=== PATIENT | male | born 1935 | race Caucasian/White ===

== ENCOUNTER 2017-09-06 16:21 | Emergency (ER) | payer MEDICARE, BC ==
[2017-09-06] MEDS ORDERED: Sodium Chloride 0.9% 1,000 ML IV ONE (16:44)
[2017-09-06] MEDS ORDERED: Ondansetron 4 MG/2 ML SDV IVPUSH ONE (16:45)
--- NOTE | 2017-09-06 16:50 | EDM.PDOC ---
ED HPI GENERAL MEDICAL PROBLEM - General Stated Complaint: N/V/D Time Seen by Provider: 09/06/17 16:36 Source of Information: Reports: Patient History Limitations: Reports: No Limitations - History of Present Illness INITIAL COMMENTS - FREE TEXT/NARRATIVE: Patient presents via ambulance with vomiting and diarrhea. He had gone to see his PCP in clinic this morning and was given Rx for Augmentin to treat bronchitis. He took the first dose at noon today. Around 1.5 hours later he started to feel very sick to his stomach and shortly began vomiting repeatedly along with one episode of diarrhea. He now feels weak but hasn't vomited for almost two hours although still feels mildly nauseated. Denies any airway swelling or dyspnea. Abdominal Pain Score (Numeric/FACES): 4 - Related Data Allergies Allergy/AdvReac Type Severity Reaction Status Date / Time bacitracin Allergy Cannot Verified 09/06/17 17:26 [From Neosporin Remember ([id number])] doxazosin Allergy Cannot Verified 09/06/17 17:26 Remember doxycycline Allergy Cannot Verified 09/06/17 17:26 Remember gluten Allergy Cannot Verified 09/06/17 17:26 Remember Iodinated Contrast- Oral and Allergy Airway Verified 09/06/17 17:26 IV Dye Tightness lactose Allergy Cannot Verified 09/06/17 17:26 Remember neomycin Allergy Cannot Verified 09/06/17 17:26 [From Neosporin Remember ([id number])] polymyxin B Allergy Cannot Verified 09/06/17 17:26 [From Neosporin Remember ([id number])] verapamil Allergy Rash Verified 09/06/17 17:26 Home Meds: Home Meds Flunisolide [Nasalide Nasal [place]] 2 sprays INH BID 12/06/14 [History] Acetaminophen [Acetaminophen ER] 650 mg PO DAILY 09/06/17 [History] Ascorbic Acid [Vitamin C] 1,000 mg PO DAILY 09/06/17 [History] Lutein 20 mg PO DAILY 09/06/17 [History] amLODIPine Besylate [Amlodipine Besylate] 5 mg PO DAILY 09/06/17 [History] Past Medical History - Past Health History Medical/Surgical History: Denies Medical/Surgical History ED ROS GENERAL - Review of Systems Review Of Systems: See Below Constitutional: Reports: Weakness, Diaphoresis (with vomiting). Denies: Fever, Chills HEENT: Denies: Ear Pain, Throat Swelling, Vision Change Respiratory: Reports: Cough (for over a week). Denies: Shortness of Breath, Wheezing Cardiovascular: Denies: Chest Pain, Syncope GI/Abdominal: Reports: Abdominal Pain (feels bloated), Diarrhea, Vomiting : Reports: No Symptoms Musculoskeletal: Reports: No Symptoms Skin: Reports: No Symptoms Neurological: Denies: Confusion, Dizziness, Headache, Seizure, Syncope, Trouble Speaking, Change in Speech, Gait Disturbance Psychiatric: Denies: Agitation, Anxiety, Confusion ED EXAM, GI/ABD - Physical Exam Exam: See Below Exam Limited By: No Limitations General Appearance: Alert, WD/WN, No Apparent Distress Eyes: Bilateral: Normal Appearance, EOMI Ears: Normal External Exam, Normal Canal, Hearing Grossly Normal, Normal TMs Nose: Normal Inspection, No Blood Throat/Mouth: Normal Inspection, Normal Lips, Normal Oropharynx, Normal Voice, No Airway Compromise Head: Atraumatic, Normocephalic Neck: Normal Inspection, Supple, Full Range of Motion Respiratory/Chest: No Respiratory Distress, Lungs Clear, Normal Breath Sounds Cardiovascular: Regular Rate, Rhythm, No Rub GI/Abdominal Exam: Normal Bowel Sounds, Soft, Non-Tender, No Organomegaly, Distended (mild). No: Guarding, Rigid, Rebound Back Exam: Normal Inspection, Full Range of Motion. No: CVA Tenderness (L), CVA Tenderness (R) Extremities: Normal Inspection, Normal Range of Motion Neurological: Alert, Oriented, Normal Cognition, No Motor/Sensory Deficits Psychiatric: Normal Affect, Normal Mood Skin Exam: Warm, Dry, Intact, Normal Color, No Rash Course - Vital Signs Last Recorded V/S: Last Vital Signs Temp 98.0 F 09/06/17 16:30 Pulse 91 09/06/17 17:16 Resp 18 09/06/17 17:16 BP 134/49 L 09/06/17 17:16 Pulse Ox 91 L 09/06/17 17:16 - Orders/Labs/Meds Labs: Laboratory Tests 09/06/17 09/06/17 Range/Units 16:45 16:45 WBC 20.5 H D (5.0-10.0) 10^3/uL RBC 4.71 (4.50-6.00) 10^6/uL Hgb 15.4 (13.0-17.0) g/dL Hct 46.1 (40.0-52.0) % MCV 97.8 H (82.0-92.0) fL MCH 32.6 H (27.0-31.0) pg MCHC 33.3 (32.0-36.0) g/dL RDW 11.8 (11.5-14.5) % Plt Count 411 H D (150-300) 10^3/uL MPV 7.6 (7.4-10.4) fL Neut % (Auto) 89.0 H (50.0-70.0) % Lymph % (Auto) 3.3 L (20.0-40.0) % [place] % (Auto) 7.0 (2.0-8.0) % Eos % (Auto) 0.6 L (1.0-3.0) % Baso % (Auto) 0.1 (0.0-1.0) % Neut # (Auto) 18.3 H (2.5-7.0) 10^3/uL Lymph # (Auto) 0.7 L (1.0-4.0) 10^3/uL [place] # (Auto) 1.4 H (0.1-0.8) 10^3/uL Eos # (Auto) 0.1 (0.1-0.3) 10^3/uL Baso # (Auto) 0.0 (0.0-0.1) 10^3/uL Sodium 140 (136-145) mmol/L Potassium 4.3 (3.3-5.3) mmol/L Chloride 104 (98-115) mmol/L Carbon Dioxide 24.9 (21.0-32.0) mmol/L BUN 22 (6-25) mg/dL Creatinine 0.85 (0.51-1.17) mg/dL Est Cr Clr Drug Dosing 60.48 mL/min Estimated GFR (MDRD) > 60 mL/min Glucose 115 H (70-110) mg/dL Calcium 9.2 (8.7-10.3) mg/dL Total Bilirubin 0.8 (0.2-1.0) mg/dL AST 17 (15-37) U/L ALT 18 (12-78) U/L Alkaline Phosphatase 93 (46-116) IU/L Total Protein 8.4 H (6.4-8.2) g/dL Albumin 3.29 (3.00-4.80) g/dL Meds: Medications Discontinued Medications Generic Name Dose Route Start Last Admin Trade Name Paulie PRN Reason Stop Dose Admin Sodium Chloride 1,000 mls @ 999 mls/hr 09/06/17 16:44 09/06/17 16:58 Normal Saline IV 09/06/17 17:44 999 mls/hr .BOLUS ONE Administration Ondansetron HCl 4 mg 09/06/17 16:45 09/06/17 17:02 Zofran IVPUSH 09/06/17 16:46 4 mg ONETIME ONE Administration - Re-Assessments/Exams Free Text/Narrative Re-Assessment/Exam: 09/06/17 18:33 After Zofran and fluids IV, patient is feeling much better. Labs okay except WBC 20. Patient is afebrile without tachycardia or tachypnea and appears well. Discussed with patient that I feel the elevated WBC is due to the heavy vomiting he had today but that I want him to follow up with his PCP in 1-2 days to recheck it. Patient is in agreement and is discharged to home in stable condition. Departure - Departure Time of Disposition: 18:31 Disposition: Home, Self-Care 01 Clinical Impression: N&V (nausea and vomiting) Qualifiers: Vomiting type: unspecified Vomiting Intractability: unspecified Qualified Code( s): R11.2 - Nausea with vomiting, unspecified - Discharge Information Referrals: Antonia Khalil MD [Primary Care Provider] - Additional Instructions: 1. Drink 8 cups of water daily. 2. Use the Zofran as directed for nausea and vomiting. 3. Follow up with Dr. Hampton in 1-2 days for recheck of white blood count. 4. Return to ER if needed.
[2017-09-06 17:16] VITALS: BP 134/49
[2017-09-06 17:35] LABS: CHLORIDE,CL 104 mmol/L (98-115); SODIUM,NA 140 mmol/L (136-145)
[2017-09-06] MEDS: Ondansetron 4 MG Tab.DIS PO ONE ×3 (18:49→20:43)
== END 2017-09-06 19:00 | disposition home or self-care (01) ==
LOC: KA.ED 16:21
DX: R11.2 Nausea with vomiting, unspecified (principal); R19.7 Diarrhea, unspecified; Z79.899 Other long term (current) drug therapy; Z91.011 Allergy to milk products; Z88.8 Allergy status to other drugs, medicaments and biological substances; Z88.1 Allergy status to other antibiotic agents; Z91.041 Radiographic dye allergy status
CPT/HCPCS: 36415; 80053; 85025; 96361; 96374; 99284; A9270-GY; J2405; J7030

== ENCOUNTER 2021-07-05 13:18 | Emergency (ER) | payer MEDICARE, BC ==
[2021-07-05 13:32] VITALS: BP 144/90; PULSE 86
[2021-07-05] MEDS ORDERED: Lidocaine 1% 5 ML VIAL ONE (13:50)
[2021-07-05] MEDS ORDERED: Lidocaine 1% 5 ML VIAL INJECT ONE (13:53)
[2021-07-05] MEDS ORDERED: Diphtheria,Pertussis(Acell),Tetanus Vaccine 0.5 ML Syringe IM ONE (13:56)
== END 2021-07-05 14:10 | disposition home or self-care (01) ==
LOC: KA.ED 13:18
DX: S61.012A Laceration without foreign body of left thumb without damage to nail, initial encounter (principal); I10 Essential (primary) hypertension; Z88.1 Allergy status to other antibiotic agents; Z91.041 Radiographic dye allergy status; Z91.018 Allergy to other foods; Z88.8 Allergy status to other drugs, medicaments and biological substances; Z23 Encounter for immunization; W26.0XXA Contact with knife, initial encounter
CPT/HCPCS: 12002; 90471; 90715; 99282-25; 99283

== ENCOUNTER 2023-01-03 14:35 | Emergency (ER) | payer MEDICARE, BC ==
[2023-01-03 14:52] VITALS: BP 146/88; PULSE 103
[2023-01-03 14:58] LABS: BASOPHILS ABSOLUTE AUTO 0.03 10^3/uL (0.00-0.10); BASOPHILS PERCENT AUTO 0.5 % (0.0-1.0); EOSINOPHILS ABSOLUTE AUTO 0.05 10^3/uL (0.10-0.30); EOSINOPHILS PERCENT AUTO 0.8 % (1.0-3.0); HEMOGLOBIN 14.9 g/dL (13.0-17.0); IMMATURE GRAN ABSOLUTE AUTO 0.02 10^3/uL (0.00-0.50); IMMATURE GRAN PERCENT AUTO 0.3 % (0.0-5.0); MEAN CORPUSCULAR HEMOGLOBIN 31.8 pg (27.0-31.0); MEAN CORPUSCULAR HGB CONC 32.4 g/dL (32.0-36.0); MEAN CORPUSCULAR VOLUME 98.3 fL (82.0-92.0); MEAN PLATELET VOLUME 11.9 fL (7.4-10.4); MONOCYTES ABSOLUTE AUTO 0.49 10^3/uL (0.10-0.80); MONOCYTES PERCENT AUTO 8.1 % (2.0-8.0); NEUTROPHILS ABSOLUTE AUTO 3.78 10^3/uL (2.50-7.00); NEUTROPHILS PERCENT AUTO 62.3 % (50.0-70.0); PLATELET COUNT,PLT 153 10^3/uL (150-400); RED BLOOD CELL COUNT 4.68 10^6/uL (4.50-6.00); RED CELL DISTRIBUTION WIDTH 12.4 % (11.5-14.5); WHITE BLOOD CELL COUNT,WBC 6.07 10^3/uL (5.00-10.00)
[2023-01-03 15:33] LABS: ALBUMIN 3.07 g/dL (3.40-5.00); BILIRUBIN TOTAL 0.7 mg/dL (0.2-1.0); CALCIUM 8.8 mg/dL (8.7-10.3); CARBON DIOXIDE,CO2 28.8 mmol/L (21.0-32.0); CREATININE 0.82 mg/dL (0.51-1.17); EST CRCL DRUG DOSING (CG) 53.13 mL/min; POTASSIUM,K 3.8 mmol/L (3.5-5.1); PROTEIN TOTAL,TP 7.3 g/dL (6.4-8.2)
== END 2023-01-03 16:45 | disposition home or self-care (01) ==
LOC: KA.ED 14:35
DX: I48.92 Unspecified atrial flutter (principal); Z88.1 Allergy status to other antibiotic agents; Z88.8 Allergy status to other drugs, medicaments and biological substances; Z91.041 Radiographic dye allergy status; Z91.09 Other allergy status, other than to drugs and biological substances
CPT/HCPCS: 36415; 80053; 84484; 85025; 93005; 93010; 99284; 99285